=== PATIENT | male | born 2000 | race Caucasian/White ===

== ENCOUNTER 2024-02-16 17:00 | Emergency (ER) | payer SELFPAY ==
[2024-02-16 17:16] VITALS: BP 143/90
[2024-02-16 17:50] LABS: COVID-19 Antigen Negative (Negative)
[2024-02-16 19:20] LABS: % Basophils 0.6 % (0-2); % Eosinophils 2.2 % (0-6); % Immature Granulocytes 0.2 % (0-0.5); % Lymphocytes 35.7 % (20.5-51.1); % Monocytes 7.5 % (1.7-9.3); % Neutrophils 53.8 % (42.2-75.2); Absolute Basophils 0.1 10^3/uL (0-0.2); Absolute Eosinophils 0.2 10^3/uL (0-0.7); Absolute Monocytes 0.6 10^3/uL (0.1-0.6); Absolute Neutrophils 4.4 10^3/uL (1.4-6.5); Hematocrit 41.9 % (39.0-52.0); Hemoglobin 15.1 g/dL (13.0-18.0); Mean Corpuscular Hgb 27.2 pg (27.0-31.0); Mean Corpuscular Volume 75.4 fL (80.0-94.0); Mean Platelet Volume 9.6 fL (7.4-10.4); Nucleated Red Blood Cells % 0 % (-); Platelet Count 218 10^3/uL (130-400); Red Blood Cell Count 5.56 10^6/uL (4.70-6.10); Red Cell Dist. Width 13.5 % (11.5-14.5); White Blood Cell Count 8.3 10^3/uL (4.8-10.8)
[2024-02-16 19:32] LABS: ALT (SGPT) 16 U/L (0-50); AST (SGOT) 23 U/L (17-59); Albumin 4.9 g/dl (3.5-5.0); Alkaline Phosphatase 72 U/L (38-126); Blood Urea Nitrogen 16 mg/dl (9-20); Calcium 9.7 mg/dl (8.4-10.2); Carbon Dioxide 21 mmol/L (22-30); Chloride 109 mmol/L (98-107); Glucose 87 mg/dl (70-99); Magnesium 1.9 mg/dl (1.6-2.3); Potassium 3.7 mmol/L (3.5-5.1); Sodium 138 mmol/L (135-145); Total Protein 7.2 g/dl (6.3-8.2); eGFR > 60.00
--- NOTE | 2024-02-16 19:35 | ED.GENMED ---
History of Present Illness
General
Chief Complaint: Heart Rate Problem
Source: patient
Exam Limitations: none
Time Seen by Provider: 02/16/24 18:46
Nursing documentation reviewed up to this point in time: agreed with
Travel History
Have you had any contact with someone who has COVID-19?: No
Do you have any symptoms of coronavirus? Fever > 100 degrees, chills, cough, shortness of breath, sore throat, loss of taste or smell, muscle aches, or headache?: No
History of Present Illness
History of Present Illness:
23-year-old male with a past medical history of anxiety, ADHD, former history of methamphetamine abuse who presents to the emergency room for evaluation of palpitations. Patient reports that last night he had a lot of anxiety and this morning when
he wake up to go to work he was having palpitations. He says when he got to work the palpitations were quite extreme for a few minutes and they have been off and on since then. Decided to come to the emergency to be assessed. He says he has had
this issue off and on for a few years�he says that when he lived in [place] previously he saw a doctor about it and was supposed to get a heart monitor but his symptoms went away and he did not follow through. He says that he did not have any
associated dizziness or lightheadedness. He did not have any chest pain or shortness of breath. He no longer does any drugs aside from occasional marijuana. He denies any heavy caffeine use. He denies any alcohol use. He denies any other
complaints today.
Past History
Past History
ED Past Medical History: Psychiatric (ADHD, bipolar, Anxiety, Depression) and Other (Vertigo, Palpitations, )
ED Past Surgical History: Orthopedic (Right hand surgery)
Social History
Tobacco: Vaping
Alcohol: Occasional
Drug: Marijuana
Personal: Single
Employment: Employed ([employer])
Family History
Family History: Other (Noncontributory)
Review of Systems
Review of Systems
All Other Systems: ROS reviewed and negative except as documented in HPI and ROS
Constitutional: Denies fever or chills
EENT: Denies sore throat or runny nose
Respiratory: Denies cough or trouble breathing
Cardiac: Reports palpitations; Denies chest pain, diaphoresis or syncope
ABD/GI: Denies abdominal pain, nausea, vomiting or diarrhea
: Denies dysuria, frequency or flank pain
Musculoskeletal: Denies neck pain or back pain
Neurological: Denies dizzy, headache, weakness or numbness
Phy Exam
Physical Exam
Physical Exam:
General: Awake, alert, oriented x3; no acute distress
Head: Normocephalic, atraumatic
Eyes: Conjunctiva normal
Throat: Airway intact, handling secretions
Neck: Trachea midline, supple without meningismus
Lungs: Clear to auscultation bilaterally, no wheezing, rales, rhonchi
Heart: Regular rate and rhythm with no ectopy, no murmurs, gallops, or rubs
Abd: Soft, non distended, nontender
Neuro: Cranial nerves grossly intact, speech fluid
Skin: no rash
Extremities: No edema in extremities, warm and well-perfused
Scores
Heart Failure Risk
Heart Failure Risk Score: Not Applicable
Heart Score for Chest Pain Patients
STEMI patient?: Not applicable
Withdrawal Assessment of Alcohol
Withdrawal Assessment Completed?: Not applicable
Course
Orders/Labs/Results
Orders:
Orders
02/16/24 17:19
Electrocardiogram (*1) Urgent
Reason for Study: Palpitations
EKG- Treatment ONCE
02/16/24 17:27
COVID-19 Antigen Urgent
Source: Nasal Swab
INF RAPID [Influenza A+B Rapid Molecular] Urgent
JENN Source: Nasal Swab
Specimen Description:
02/16/24 19:13
Complete Blood Count/With Diff Urgent
Comprehensive Metabolic Panel Urgent
Magnesium Urgent
TSH Reflex To Free T4 Urgent
Abnormal Lab Results
02/16/24
19:13
MCV 75.4 L fL
(80.0-94.0)
Chloride 109 H mmol/L
(98-107)
Carbon Dioxide 21 L mmol/L
(22-30)
02/16/24 19:13
02/16/24 19:13
Vital Signs
Initial and Last Documented VS:
Initial Vital Signs
Temp Pulse Resp BP Pulse Ox
37.8 C 80 20 143/90 98
02/16/24 17:16 02/16/24 17:16 02/16/24 17:16 02/16/24 17:16 02/16/24 17:16
Last Documented Vital Signs
Temp Pulse Resp BP Pulse Ox
37.8 C 80 20 143/90 98
02/16/24 17:16 02/16/24 17:16 02/16/24 17:16 02/16/24 17:16 02/16/24 17:16
MDM/Problems Addressed
Differential Diagnosis Includes:
Anxiety, PVCs/PACs, atrial fibrillation/flutter, thyroid dysfunction, electrolyte derangement, dehydration
MDM/Problems Addressed:
23-year-old male presents for the evaluation of palpitations more intense today after an episode of significant anxiety last night related to a documentary. Has had this issue in the past but slightly more intense today. No associated symptoms
such as dizziness, chest pain, shortness of breath. Vital signs here within normal limits. Physical exam as above. EKG shows sinus rhythm with no ectopy, no delta wave, no Brug[place], normal QTc, no AV block, no dagger Q waves or LVH concerning for
HOCM. Basic lab work sent off including a CBC and a CMP which showed no clinically significant abnormalities. Suspect likely anxiety related versus symptomatic PACs/PVCs however will refer to cardiology for further assessment of his palpitations
including cardiac monitoring/Holter monitor. No clear indication for admission at this point, stable for discharge. Patient very comfortable with this plan. Spoke about return precautions all questions answered.
*Pulse Oximetry
Patient hypoxic: no
*EKG
Interpreted by ED Provider?: Yes
Heart Rate: 64
Rate: normal
Rhythm: sinus
[place]: normal axis
Interval: normal interval
QRS Pattern: normal QRS
Ischemia: no ischemia
*Critical Care Note
Total Time (30-74mins, 75-104mins- exclusive of procedures): Not Applicable
Data Reviewed
Source: patient
ED Attending Note
-
Portions of this chart may have been created with voice recognition software.� Occasional wrong word or��sound alike� substitutions may have occurred due to the inherent limitations of voice recognition software.
Discharge Plan
Departure
Patient Disposition: Home (Routine Discharge)
Date of Disposition: 02/16/24
Time of Disposition: 19:35
Patient with high blood pressure during this ER visit?: Yes
Discharge Problem:
Heart palpitations
Instructions: Palpitations (DC)
Prescriptions:
No Action
No Current Medications
0
Referrals:
Jogre A Su MD [Active] - Call in 1-3 days for appt
Holly Velazco MD [Family Provider] -
Activity Restrictions/Additional Instructions:
Thank you for visiting the Emergency Department at [facility].
1. Please schedule a follow up appointment as directed. Call first thing tomorrow morning to make an appointment.
2. If indicated, please take your medications as instructed and indicated on discharge paperwork.
3. If any of your symptoms do not improve, or persist, or become more severe within 6-12 hours, please return to the emergency department for further care.
4. Please return to the emergency department if you develop a headache, neck pain/stiffness, fever greater than 100.4F, chest pain, shortness of breath, persistent nausea, vomiting, slurred speech, difficulty walking, numbness/tingling, weakness,
signs of infection or any other symptoms that are worrisome to you.
Please call [phone] if you have any questions.
Interventions
Interventions:
*Risk Screen - Suicide Last Done: 02/16/24 17:16
*General Assessment Last Done: 02/16/24 18:04
*Neglect/Abuse Screening Last Done: 02/16/24 17:16
*ED COVID-19 Vaccine History Last Done: 02/16/24 18:04
ED- Cardiac Assessment Last Done: 02/16/24 19:15
ED- Pulmonary Assessment Last Done: 02/16/24 19:15
[2024-02-16 19:46] VITALS: BP 132/89
[2024-02-16 20:02] LABS: TSH Reflex To Free T4 2.76 uIU/ml (0.47-4.68)
== END 2024-02-16 19:47 | disposition home or self-care (01) ==
LOC: EMR 17:00
PROVIDERS: EMERGENCY PHYSICIAN Emergency Medicine; FAMILY PHYSICIAN Family Medicine
DX: R00.2 Palpitations (principal); F41.9 Anxiety disorder, unspecified; F31.9 Bipolar disorder, unspecified; I48.91 Unspecified atrial fibrillation; F90.9 Attention-deficit hyperactivity disorder, unspecified type; F17.290 Nicotine dependence, other tobacco product, uncomplicated
CPT/HCPCS: 99283; 80053; 83735; 84443; 85025; 87502; 87811; 93005

== ENCOUNTER 2024-03-01 03:38 | Emergency (ER) | payer SELFPAY ==
[2024-03-01 03:42] VITALS: BP 129/79
[2024-03-01 04:07] LABS: % Basophils 0.5 % (0-2); % Eosinophils 3.2 % (0-6); % Immature Granulocytes 0.2 % (0-0.5); % Lymphocytes 45.9 % (20.5-51.1); % Monocytes 6.1 % (1.7-9.3); % Neutrophils 44.1 % (42.2-75.2); Absolute Basophils 0.1 10^3/uL (0-0.2); Absolute Eosinophils 0.3 10^3/uL (0-0.7); Absolute Lymphocytes 4.5 10^3/uL (1.2-3.4); Absolute Monocytes 0.6 10^3/uL (0.1-0.6); Absolute Neutrophils 4.4 10^3/uL (1.4-6.5); Hematocrit 46.3 % (39.0-52.0); Hemoglobin 15.7 g/dL (13.0-18.0); Mean Corp Hgb Conc. 33.9 g/dL (33.0-37.0); Mean Corpuscular Hgb 26.8 pg (27.0-31.0); Mean Corpuscular Volume 79.1 fL (80.0-94.0); Mean Platelet Volume 9.9 fL (7.4-10.4); Nucleated Red Blood Cells % 0 % (-); Platelet Count 203 10^3/uL (130-400); Red Blood Cell Count 5.85 10^6/uL (4.70-6.10); Red Cell Dist. Width 13.5 % (11.5-14.5); White Blood Cell Count 9.9 10^3/uL (4.8-10.8)
--- NOTE | 2024-03-01 04:28 | ED.GENMED ---
History of Present Illness
General
Chief Complaint: Heart Rate Problem
Source: patient
Exam Limitations: none
Time Seen by Provider: 03/01/24 04:01
Nursing documentation reviewed up to this point in time: agreed with
Travel History
Have you had any contact with someone who has COVID-19?: No
Do you have any symptoms of coronavirus? Fever > 100 degrees, chills, cough, shortness of breath, sore throat, loss of taste or smell, muscle aches, or headache?: No
History of Present Illness
History of Present Illness:
Pleasant 23-year-old male who presents with heart palpitations. He states that they began approximate 2 hours prior to arrival. Patient suffers from anxiety and states that he has had several episodes of high anxiety. He denies increased caffeine
intake. He does not typically drink coffee rather he drinks tea. Denies any energy drinks. He does smoke tobacco. He smokes marijuana. Patient states that he has had palpitations for years. Denies alcohol use.
Vital signs are stable. Patient not hypoxic
Nursing note reviewed. I agree with nursing documentation up to this point in time.
Home Meds and allergies reviewed.
NUMBER AND COMPLEXITY OF PROBLEMS ADDRESSED AT THE ENCOUNTER
� Chronic conditions affecting care: Anxiety, chronic palpitations
� Acute Exacerbation and/or Progression of Chronic Illness: Palpitations
� Differential Diagnosis includes: Palpitations
AMOUNT AND/OR COMPLEXITY OF DATA TO BE REVIEWED AND ANALYZED
I performed an independent evaluation of the following and my interpretation is:
EKG: EKG shows normal sinus rhythm rate of 66 with normal intervals, normal axis. No evidence of acute ischemia present.
CT:
X-rays:
Ultrasound:
Laboratory Studies:
Other:
Review of other/old records: Previous ER records
Clinical information was obtained by an independent historian:
Prescriptions/Medications Considered but not given:
Further testing considered but not performed:
RISK OF COMPLICATIONS AND/OR MORBIDITY OR MORTALITY OF PATIENT MANAGEMENT
Social determinants of health affecting care: Good Social Support
Discussion with other providers:
Escalation of care including admission/observation vs risk of discharge considered:
CRITICAL CARE NOTE:
Total Time (exclusive of procedures):
Update:
Past History
Past History
ED Past Medical History: Psychiatric (ADHD, bipolar, Anxiety, Depression) and Other (Vertigo, Palpitations, )
ED Past Surgical History: Orthopedic (Right hand surgery)
Social History
Tobacco: Vaping
Alcohol: Occasional
Drug: Marijuana
Personal: Single
Employment: Employed ([employer])
Family History
Family History: Other (Noncontributory)
Phy Exam
General Physical Exam
General Presentation: well appearing and no apparent distress
General Skin: warm and dry
General Habitus: normal
General Mental: alert
General Hydration: appears well hydrated
ENT Exam
ENT Exam: EOMI, pharynx normal, neck supple and normocephalic
Eye Exam
Eye Exam: PERRL, cornea clear and conjunctiva normal
Cardiovascular Exam
Cardiovascular Exam: regular rate/rhythm, no edema, no murmur and normal peripheral pulses
Pulmonary Exam
Pulmonary Exam: lungs clear, no respiratory distress, no rales, no crackles, no rhonchi, no stridor, no wheezing and no cough
Gastrointestinal Exam
Gastrointestinal Exam: normal bowel sounds, non tender, soft, no organomegaly, no pulsatile mass and non distended
Neurological Exam
Neurological Exam: alert, oriented x3, no motor deficits and speech normal
Musculoskeletal Exam
Musculoskeletal Exam: full ROM and no edema
Skin Exam
Skin Exam: normal color, warm/dry, no rash and no petechia
Psychiatric Exam
Psychiatric Exam: normal mood/affect
Course
Orders/Labs/Results
Orders:
Orders
03/01/24 03:47
Electrocardiogram (*1) Urgent
Reason for Study: Other
Other Reason for Exam: Respiratory Distress
Cardiac Monitoring- Treatment ONCE
EKG- Treatment ONCE
IV Insert/Care/Rem.- Treatment PRN
CR Chest - 2 Views Urgent
Comment:
Reason For Exam: respiratory distress
O2 Therapy [RESP] Urgent
Titrate/Wean O2 to maintain O2 sat greater than (%): 93
Special Instructions: TO MAINTAIN CONTINUOUS O2 SATS >/= 93%
Pulse Ox/cont/shift [RESP] Urgent
Quantity: 1
Special Instructions: continuous pulse ox
03/01/24 04:02
Complete Blood Count/With Diff Urgent
Comprehensive Metabolic Panel Urgent
NT-proBNP Urgent
Troponin I Urgent
Abnormal Lab Results
03/01/24
04:02
MCV 79.1 L fL
(80.0-94.0)
MCH 26.8 L pg
(27.0-31.0)
Absolute Lymphs (auto) 4.5 H 10^3/uL
(1.2-3.4)
03/01/24 04:02
03/01/24 04:02
Vital Signs
Initial and Last Documented VS:
Initial Vital Signs
Temp Pulse Resp BP Pulse Ox
98.1 F 59 20 129/79 99
03/01/24 03:42 03/01/24 03:42 03/01/24 03:42 03/01/24 03:42 03/01/24 03:42
Last Documented Vital Signs
Temp Pulse Resp BP Pulse Ox
98.1 F 56 21 129/79 96
03/01/24 03:42 03/01/24 04:45 03/01/24 04:45 03/01/24 03:42 03/01/24 04:45
*Critical Care Note
Total Time (30-74mins, 75-104mins- exclusive of procedures): Not Applicable
ED Attending Note
-
Portions of this chart may have been created with voice recognition software.� Occasional wrong word or��sound alike� substitutions may have occurred due to the inherent limitations of voice recognition software.
Discharge Plan
Departure
Patient Disposition: Home (Routine Discharge)
Date of Disposition: 03/01/24
Time of Disposition: 05:55
Patient with high blood pressure during this ER visit?: Yes
Condition: Good
Discharge Problem:
Palpitations
Instructions: Palpitations (DC), BLOOD PRESSURE
Prescriptions:
No Action
No Current Medications
0
Referrals:
Holly Velazco MD [Family Provider] -
Activity Restrictions/Additional Instructions:
It was a pleasure meeting you and taking part in your care. We hope for your continued healing and wellness.
Please read discharge instructions in their entirety. However, they are for general education and may not describe your exact diagnosis at discharge. Information on your ER visit and medical conditions were discussed with you along with appropriate
follow up information...
If indicated, please take your medications as instructed and indicated on discharge paperwork.
Please schedule a follow up appointment as directed. Call to schedule an appointment
Please return to the emergency department with ANY change in, persisting, or worsening of symptoms. If any of your symptoms do not improve, or persist, or become more severe within 6-12 hours, please return to the emergency department for further
care.
Please return to the emergency department if you develop a headache, neck pain/stiffness, fever greater than 100.4F, chest pain, shortness of breath, persistent nausea, vomiting, slurred speech, difficulty walking, numbness/tingling, weakness, signs
of infection or any other symptoms that are worrisome to you.
If you have any questions or concerns please do not hesitate to call the Hospital at or E-mail me directly at [email or web address]
Interventions
Interventions:
*Risk Screen - Suicide Last Done: 03/01/24 03:42
*General Assessment Last Done: 03/01/24 03:42
*Neglect/Abuse Screening Last Done: 03/01/24 03:42
ED- Fall Risk Assessment Last Done: 03/01/24 03:42
*ED COVID-19 Vaccine History Last Done: 03/01/24 03:42
ED- Cardiac Assessment Last Done: 03/01/24 04:04
ED- Pulmonary Assessment Last Done: 03/01/24 04:04
Discharge Date and Time
Print Language: AUSTRIAN
[2024-03-01 04:30] LABS: ALT (SGPT) 16 U/L (0-50); AST (SGOT) 21 U/L (17-59); Albumin 4.9 g/dl (3.5-5.0); Alkaline Phosphatase 87 U/L (38-126); Blood Urea Nitrogen 16 mg/dl (9-20); Calcium 9.6 mg/dl (8.4-10.2); Carbon Dioxide 25 mmol/L (22-30); Chloride 107 mmol/L (98-107); Glucose 96 mg/dl (70-99); Potassium 3.8 mmol/L (3.5-5.1); Sodium 140 mmol/L (135-145); Total Bilirubin 0.5 mg/dl (0.2-1.3); Total Protein 7.4 g/dl (6.3-8.2); eGFR > 60.00
[2024-03-01 04:34] LABS: NT-proBNP < 20.0 pg/ml; Troponin I < 0.012 ng/ml
[2024-03-01 06:26] VITALS: BP 118/89
== END 2024-03-01 06:27 | disposition home or self-care (01) ==
LOC: EMR 03:38
PROVIDERS: EMERGENCY PHYSICIAN Student in an Organized Health Care Education/Training Program; FAMILY PHYSICIAN Family Medicine
DX: R00.2 Palpitations (principal); R03.0 Elevated blood-pressure reading, without diagnosis of hypertension; F90.9 Attention-deficit hyperactivity disorder, unspecified type; F31.9 Bipolar disorder, unspecified; R01.1 Cardiac murmur, unspecified; F41.9 Anxiety disorder, unspecified; F32.A Depression, unspecified; F17.290 Nicotine dependence, other tobacco product, uncomplicated
CPT/HCPCS: 99284; 94760; 71046; 80053; 83880; 84484; 85025; 93005

== ENCOUNTER 2024-08-09 16:20 | Emergency (ER) | payer OTHER, SELFPAY ==
[2024-08-09 16:23] VITALS: BP 133/82
--- NOTE | 2024-08-09 17:40 | ED.GENMED ---
History of Present Illness
General
Chief Complaint: Heart Rate Problem
Source: patient
Time Seen by Provider: 08/09/24 17:10
History of Present Illness
History of Present Illness:
23yoM with a history of anxiety presenting with his mother for evaluation of palpitations. Patient reports ongoing palpitations for the past 4 years. Symptoms have been worsening over the past several months. He states it feels like his heart is
skipping beats. Symptoms are intermittent and can last several hours at a time. He denies any associated chest pain, shortness of breath, syncope. Patient was seen by his PCP earlier last week for the same and was given a prescription for a
Holter monitor. He is scheduled to pickle solution maker the Holter monitor next week. He was also started on propranolol 10 mg twice daily which he has been compliant with. Symptoms have not improved with propranolol. Only other medication is Wellbutrin.
Past History
Past History
ED Past Medical History: Psychiatric (ADHD, bipolar, Anxiety, Depression) and Other (Vertigo, Palpitations, )
ED Past Surgical History: Orthopedic (Right hand surgery)
Social History
Tobacco: Vaping
Alcohol: Occasional
Drug: Marijuana
Personal: Single
Employment: Employed ([employer])
Family History
Family History: Other (Noncontributory)
Phy Exam
General Physical Exam
General Presentation: well appearing and no apparent distress
General age: appears stated age
General Skin: warm and dry
General Habitus: normal
General Mental: alert
General Hydration: appears well hydrated
Cardiovascular Exam
Cardiovascular Exam: regular rate/rhythm and no edema
Pulmonary Exam
Pulmonary Exam: lungs clear, no respiratory distress, no rales, no crackles, no rhonchi and no wheezing
[place] Coma Scale
Eye Opening: Spontaneous
Verbal Response: Oriented
Motor Response: Obeys Commands
GCS Total Score: 15
Skin Exam
Skin Exam: normal color and warm/dry
Psychiatric Exam
Psychiatric Exam: normal mood/affect
Course
Orders/Labs/Results
Orders:
Orders
08/09/24 16:27
Electrocardiogram (*1) Urgent
Reason for Study: Palpitations
EKG- Treatment ONCE
Vital Signs
Initial and Last Documented VS:
Initial Vital Signs
Temp Pulse Resp BP Pulse Ox
98.6 F 67 18 133/82 98
08/09/24 16:23 08/09/24 16:23 08/09/24 16:23 08/09/24 16:23 08/09/24 16:23
Last Documented Vital Signs
Temp Pulse Resp BP Pulse Ox
98.6 F 56 18 139/73 99
08/09/24 16:23 08/09/24 17:36 08/09/24 16:23 08/09/24 17:44 08/09/24 17:36
MDM/Problems Addressed
Differential Diagnosis Includes:
23yoM here with palpitations x several weeks to months. No syncope. Has been seen by his PCP and is picking up a Holter monitor next week. He is afebrile and hemodynamically stable. He is well-appearing in no acute distress. Exam is reassuring.
Differential diagnosis includes but is not limited to: Arrhythmia, thyroid dysfunction, electrolyte abnormality, anxiety
EKG obtained in triage. EKG shows sinus bradycardia with a heart rate of 53. No ectopy noted and intervals are normal. Recommended blood work to patient for full evaluation. Patient is refusing labs at this time and is requesting to go home
without further testing. He prefers to follow-up with his PCP and cardiology for blood work and states he has had multiple rounds of blood work in the past which have come back unrevealing. He is scheduled to start a Holter monitor next week.
Strict ED return precautions were discussed. He was discharged in stable condition.
*EKG
Interpreted by ED Provider?: Yes
EKG Intrepretation Date: 08/09/24
Heart Rate: 53
Rate: bradycardiac
Rhythm: sinus
[place]: normal axis
Interval: normal interval
QRS Pattern: normal QRS
Ischemia: no ischemia
*Critical Care Note
Total Time (30-74mins, 75-104mins- exclusive of procedures): Not Applicable
ED Attending Note
-
Portions of this chart may have been created with voice recognition software.� Occasional wrong word or��sound alike� substitutions may have occurred due to the inherent limitations of voice recognition software.
Discharge Plan
Departure
Patient Disposition: Home (Routine Discharge)
Date of Disposition: 08/09/24
Time of Disposition: 17:42
Patient with high blood pressure during this ER visit?: No
Discharge Problem:
Palpitations
Instructions: Palpitations (DC)
Prescriptions:
No Action
No Current Medications
0
Referrals:
NONE,* [Family Provider] -
Activity Restrictions/Additional Instructions:
Please follow-up with your family doctor next week and complete your Holter monitor testing.
Return to the ER with any new or worsening symptoms.
Interventions
Interventions:
*Risk Screen - Suicide Last Done: 08/09/24 16:21
*General Assessment Last Done: 08/09/24 16:23
*Neglect/Abuse Screening Last Done: 08/09/24 16:23
ED- Fall Risk Assessment Last Done: 08/09/24 17:40
*Nursing Disposition Last Done: 08/09/24 17:54
ED- Cardiac Assessment Last Done: 08/09/24 17:40
ED- Pulmonary Assessment Last Done: 08/09/24 17:40
Discharge Date and Time
Discharge Date/Time: 08/09/24 17:55
Print Language: ESTONIAN
[2024-08-09 17:44] VITALS: BP 139/73
== END 2024-08-09 17:55 | disposition home or self-care (01) ==
LOC: EMR 16:20
PROVIDERS: EMERGENCY PHYSICIAN Emergency Medicine
DX: R00.2 Palpitations (principal); F90.9 Attention-deficit hyperactivity disorder, unspecified type; F31.9 Bipolar disorder, unspecified; F41.8 Other specified anxiety disorders; F17.290 Nicotine dependence, other tobacco product, uncomplicated
CPT/HCPCS: 99283; 93005

== ENCOUNTER 2024-08-14 05:14 | Emergency (ER) | payer OTHER, SELFPAY ==
[2024-08-14 05:16] VITALS: BP 136/82
[2024-08-14 05:26] VITALS: BP 125/84
[2024-08-14 05:37] VITALS: BMI 24.6
[2024-08-14 06:00] VITALS: BP 109/81
[2024-08-14 06:06] LABS: Troponin I < 0.012 ng/ml
[2024-08-14 06:15] LABS: ALT (SGPT) 16 U/L (0-50); AST (SGOT) 20 U/L (17-59); Albumin 4.6 g/dl (3.5-5.0); Alkaline Phosphatase 87 U/L (38-126); Blood Urea Nitrogen 14 mg/dl (9-20); Calcium 9.5 mg/dl (8.4-10.2); Carbon Dioxide 22 mmol/L (22-30); Chloride 106 mmol/L (98-107); Estimated Creatinine Clearance > 125 ml/min; Glucose 99 mg/dl (70-99); Potassium 3.7 mmol/L (3.5-5.1); Sodium 143 mmol/L (135-145); Total Bilirubin 0.6 mg/dl (0.2-1.3); Total Protein 6.8 g/dl (6.3-8.2); eGFR > 60.00
[2024-08-14 06:33] LABS: Hematocrit 39.2 % (39.0-52.0); Hemoglobin 13.6 g/dL (13.0-18.0); Mean Corp Hgb Conc. 34.7 g/dL (33.0-37.0); Mean Corpuscular Hgb 25.7 pg (27.0-31.0); Mean Platelet Volume 10.1 fL (7.4-10.4); Platelet Count 216 10^3/uL (130-400); Red Cell Dist. Width 13.5 % (11.5-14.5); White Blood Cell Count 8.3 10^3/uL (4.8-10.8)
--- NOTE | 2024-08-14 06:38 | ED.GENMED ---
History of Present Illness
General
Chief Complaint: Chest Pain
Source: patient
Exam Limitations: none
Time Seen by Provider: 08/14/24 06:22
History of Present Illness
History of Present Illness:
23-year-old male presents primarily complaining of palpitations. This been going on for a week but is actually been a problem for much longer. Patient states he feels the irregular heartbeat. Is not a heart racing. There is no syncope. He does
have episodes of sharp localized chest pain at times and had more of this overnight. This started about 2 AM. However it is not necessarily associated with palpitations. Currently he clearly feels the palpitation when he has a PAC.
Past History
Past History
ED Past Medical History: Psychiatric (ADHD, bipolar, Anxiety, Depression) and Other (Vertigo, Palpitations, )
ED Past Surgical History: Orthopedic (Right hand surgery)
Social History
Tobacco: Vaping
Alcohol: Occasional
Drug: Marijuana
Personal: Single
Employment: Employed ([employer])
Family History
Family History: Other (Noncontributory)
Review of Systems
Review of Systems
All Other Systems: Not applicable
Constitutional: Denies fever or chills
Phy Exam
Physical Exam
Physical Exam:
GENERAL: Alert and oriented in no apparent distress
EYE: Orbits normal.
NECK: Supple, no thyroid palpable
ENT: Pharynx without erythema
CARDIAC: Regular rate and rhythm without any obvious murmurs.
LUNGS: Clear breath sounds,normal
ABDOMEN: Soft, without focal tenderness or distention
NEUROLOGICAL: Alert and oriented , grossly non-focal
SKIN: Warm and dry, no rash or lesion, no discoloration, skin intact.
MUSCULOSKELETAL: No edema,no deformity.Good color
PSYCH: Normal and appropriate interaction.
Scores
Heart Score for Chest Pain Patients
STEMI patient?: No
History: Slightly or Non-Suspicious
ECG: Normal
Age: </= 45 years
Risk Factors: No Risk Factors
Troponin: </= Normal Limit
Heart Score for Chest Pain Patients: 0
Heart Score Risk: 2.5% MACE over next 6 weeks
Course
Orders/Labs/Results
Orders:
Orders
08/14/24 05:22
EKG [Electrocardiogram (*1)] Urgent
Reason for Study: Chest Pain
08/14/24 05:23
EKG- Treatment ONCE
08/14/24 05:35
Complete Blood Count/With Diff Urgent
Comprehensive Metabolic Panel Urgent
Troponin I Urgent
08/14/24 07:26
EKG [Electrocardiogram (*1)] Urgent
Reason for Study: Chest Pain
EKG- Treatment ONCE
Abnormal Lab Results
08/14/24
05:35
MCV 74.0 L fL
(80.0-94.0)
MCH 25.7 L pg
(27.0-31.0)
Absolute Lymphs (auto) 4.2 H 10^3/uL
(1.2-3.4)
Neutrophils % 39.6 L %
(42.2-75.2)
08/14/24 05:35
08/14/24 05:35
Vital Signs
Initial and Last Documented VS:
Initial Vital Signs
Temp Pulse Resp BP Pulse Ox
98.8 F 72 26 136/82 100
08/14/24 05:16 08/14/24 05:16 08/14/24 05:16 08/14/24 05:16 08/14/24 05:16
Last Documented Vital Signs
Temp Pulse Resp BP Pulse Ox
97.8 F 52 13 109/81 99
08/14/24 05:30 08/14/24 06:00 08/14/24 06:00 08/14/24 06:00 08/14/24 06:00
MDM/Problems Addressed
Differential Diagnosis Includes:
As for patient's palpitations he clearly is feeling PACs. He can identify everyone on his monitor when it occurs. I can also tell him when he is having his palpitations and he agrees. Chest pain very atypical no risk factors for coronary disease.
He did have 1 irregular beat on his EKG that appears to have some ST elevation in 2 and 3 however the other beats all appear normal. Suspect that his a mild PAC. Will repeat the EKG for completeness. He has a 9 AM appointment with cardiology.
He had thyroid testing done in January of this year. Do not feel this needs to be repeated
*Pulse Oximetry
Patient hypoxic: no
*EKG
Interpreted by ED Provider?: Yes
Interpretation: normal
Comparison EKG: no changes
Heart Rate: 65
Rate: normal
Rhythm: sinus and PAC's
[place]: normal axis
Interval: normal interval
QRS Pattern: normal QRS
Ischemia: no ischemia
*Button Buttonhole Marker Interpretation
Rate: normal
Interpretation: normal
Heart Rate: 66
Rhythm: sinus and PAC's
*Critical Care Note
Total Time (30-74mins, 75-104mins- exclusive of procedures): Not Applicable
Update Note
Update Note:
Patient has remained stable and nontoxic. Repeat EKG sinus bradycardia with no acute changes. Patient is clearly describing palpitations related to PACs. Atypical chest pain with no risk factors. No cocaine use. Do not feel repeat cardiac
testing is warranted. Discharged to follow-up. He has a 9 AM appointment with cardiology.
ED Attending Note
-
Portions of this chart may have been created with voice recognition software.� Occasional wrong word or��sound alike� substitutions may have occurred due to the inherent limitations of voice recognition software.
Discharge Plan
Departure
Patient Disposition: Home (Routine Discharge)
Date of Disposition: 08/14/24
Time of Disposition: 07:36
Patient with high blood pressure during this ER visit?: No
Discharge Problem:
Palpitations/PACs, Atypical chest pain
Instructions: Chest pain, Heart Palpitations
Prescriptions:
No Action
No Current Medications
0
Referrals:
PRIVATE,PHYSICIAN [Family Provider] -
Activity Restrictions/Additional Instructions:
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
Interventions
Interventions:
*Risk Screen - Suicide Last Done: 08/14/24 05:16
*General Assessment Last Done: 08/14/24 05:37
*Neglect/Abuse Screening Last Done: 08/14/24 05:16
*ED COVID-19 Vaccine History Last Done: 08/14/24 05:37
ED- Cardiac Assessment Last Done: 08/14/24 05:37
Discharge Date and Time
Print Language: [place]
[2024-08-14 07:00] VITALS: BP 115/83
[2024-08-14 07:09] LABS: % Basophils 0.5 % (0-2); % Eosinophils 2.8 % (0-6); % Immature Granulocytes 0.2 % (0-0.5); % Lymphocytes 50.5 % (20.5-51.1); % Monocytes 6.4 % (1.7-9.3); % Neutrophils 39.6 % (42.2-75.2); Absolute Eosinophils 0.2 10^3/uL (0-0.7); Absolute Lymphocytes 4.2 10^3/uL (1.2-3.4); Absolute Monocytes 0.5 10^3/uL (0.1-0.6); Absolute Neutrophils 3.3 10^3/uL (1.4-6.5); Nucleated Red Blood Cells % 0 % (-)
[2024-08-14 07:32] VITALS: BP 124/81
== END 2024-08-14 07:48 | disposition home or self-care (01) ==
LOC: EMR 05:14
PROVIDERS: Student in an Organized Health Care Education/Training Program; EMERGENCY PHYSICIAN Emergency Medicine
DX: R00.2 Palpitations (principal); R07.89 Other chest pain; F90.9 Attention-deficit hyperactivity disorder, unspecified type; F32.A Depression, unspecified; F41.9 Anxiety disorder, unspecified; F31.9 Bipolar disorder, unspecified
CPT/HCPCS: 99284; 80053; 84484; 85025; 93005